=== PATIENT | male | born 1965 | race Caucasian/White ===

== ENCOUNTER 2021-11-13 17:48 | Emergency (ER) | payer BC ==
[~2021-11-13] VITALS: Ht 172.7 cm; Wt 86.2 kg
--- NOTE | 2021-11-13 17:50 | NUR ---
MD at bedside, medical screening exam in progress.
[2021-11-13] MEDS ORDERED: MOME17SP BNOSTRILS (18:09)
[2021-11-13] MEDS ORDERED: LORA10TA7 PO (18:09)
[2021-11-13 18:15] VITALS: BP 122/70
--- NOTE | 2021-11-13 18:15 | NUR ---
Patient discharged to home in stable condition. Written and verbal after care instructions given. Patient verbalizes understanding of instructions. Stressed follow up or return to ER for worsening s/s.
== END 2021-11-13 18:16 | disposition home or self-care (01) ==
LOC: ER 17:53
DX: J32.9 Chronic sinusitis, unspecified (principal)
CPT/HCPCS: A4663

== ENCOUNTER 2021-11-18 16:41 | Emergency (ER) | payer BC ==
[~2021-11-18] VITALS: Ht 172.7 cm; Wt 86.2 kg
[~2021-11-18 16:41] MED LIST: LORA10TA7 PO; MOME17SP BNOSTRILS
--- NOTE | 2021-11-18 16:59 | NUR ---
Dr Carvajal at the bedside for MSE.
[2021-11-18] MEDS ORDERED: KETOROLAC TROMETHAMINE 30 MG INJ ONE (17:08)
[2021-11-18] MEDS ORDERED: KETOROLAC TROMETHAMINE 30 MG INJ IM ONE (17:15)
--- NOTE | 2021-11-18 18:01 | NUR ---
Pt states his headache is less now and the medication worked.
[2021-11-18 18:10] VITALS: BP 121/78
== END 2021-11-18 18:11 | disposition home or self-care (01) ==
LOC: ER 16:51
DX: R51.9 Headache, unspecified (principal)
CPT/HCPCS: 70450; 96372; 99284; J1885; A4663

== ENCOUNTER 2022-02-12 00:12 | Emergency (ER) | payer BC ==
[~2022-02-12] VITALS: Ht 172.7 cm; Wt 88.5 kg
--- NOTE | 2022-02-12 00:20 | NUR ---
Dr Fink at bedside, MSE in progress
[2022-02-12] MEDS ORDERED: FAMO-132 PO (00:36)
[2022-02-12] MEDS ORDERED: DIPH25CA83 PO (00:36)
[2022-02-12] MEDS ORDERED: FAMOTIDINE 20 MG TABLET ONE (00:39)
[2022-02-12] MEDS ORDERED: diphenhydrAMINE 50 MG CAPSULE ONE (00:39)
[2022-02-12 00:44] VITALS: BP 138/87
--- NOTE | 2022-02-12 00:44 | NUR ---
Patient discharged to home in stable condition. Written and verbal after care instructions given. Patient verbalizes understanding of instructions. Stressed follow up or return to ER for worsening s/s. Patient is a/ox4, NAD noted. Patient is able to walk with steady gait
[2022-02-12] MEDS ORDERED: diphenhydrAMINE 50 MG CAPSULE PO ONE (00:45)
[2022-02-12] MEDS ORDERED: FAMOTIDINE 20 MG TABLET PO ONE (00:45)
== END 2022-02-12 00:45 | disposition home or self-care (01) ==
LOC: ER 00:25
DX: L50.9 Urticaria, unspecified (principal); R03.0 Elevated blood-pressure reading, without diagnosis of hypertension
CPT/HCPCS: 99283; Q0163; A4663

== ENCOUNTER 2024-05-23 11:38 | Emergency (ER) | payer BC, MEDICAID, OTHER ==
[~2024-05-23] VITALS: Ht 172.7 cm; Wt 88.5 kg
[~2024-05-23 11:38] MED LIST changes: +DIPH25CA83 PO; +FAMO-132 PO
[2024-05-23 11:41] VITALS: O2SAT 98
[2024-05-23 12:20] LABS: BASOPHILS % (AUTO) 0.8 % (0.0-2.0); EOSINOPHILS # (AUTO) 0.1 K/uL (0.0-0.7); EOSINOPHILS % (AUTO) 2.3 % (0.0-7.0); HEMATOCRIT 41.4 % (36.7-47.1); HEMOGLOBIN 14.6 g/dL (12.5-16.3); LYMPHOCYTES % (AUTO) 21.1 % (20.5-51.5); MEAN CORPUSCULAR HEMOGLOBIN 33.1 uug (23.8-33.4); MEAN CORPUSCULAR HGB CONC 35 g/dL (32.5-36.3); MEAN CORPUSCULAR VOLUME 93.6 fL (73.0-96.2); MONOCYTES # (AUTO) 0.3 K/uL (0.1-1.30); MONOCYTES % (AUTO) 6.8 % (0.0-11.0); NEUTROPHILS # (AUTO) 3.2 K/uL (1.8-8.9); PLATELET COUNT (AUTO) 158 K/uL (152-348); RED BLOOD CELL COUNT(AUTO) 4.42 MIL/uL (4.06-5.63); RED CELL DISTRIBUTION WIDTH 13.6 % (12.1-16.2); WHITE BLOOD COUNT (AUTO) 4.6 K/uL (3.6-10.2)
[2024-05-23 12:30] LABS: DIFFERENTIAL COMMENT 1
[2024-05-23 12:34] LABS: CALCIUM 8.6 mg/dL (8.5-10.1); POTASSIUM 3.7 mmol/L (3.5-5.1)
[2024-05-23 13:06] LABS: ALBUMIN 3.7 g/dL (3.4-5.0); BILIRUBIN,TOTAL 1.5 mg/dL (0.2-1.0); MAGNESIUM 2.1 mg/dL (1.8-2.4); TOTAL PROTEIN, SERUM 7.5 g/dL (6.4-8.2)
[2024-05-23] MEDS ORDERED: HYDR-3980 PO (14:01)
== END 2024-05-23 14:13 | disposition home or self-care (01) ==
LOC: ER 12:06
DX: R20.2 Paresthesia of skin (principal); Z79.51 Long term (current) use of inhaled steroids; Z88.2 Allergy status to sulfonamides; Z60.2 Problems related to living alone
CPT/HCPCS: 36415; 83735; 85025; A4606; A4663